=== PATIENT | male | born 1955 | race Caucasian/White ===

== ENCOUNTER 2025-06-06 20:21 | Day surgery (SDC) | payer MEDICARE, OTHER, SELFPAY ==
[2025-06-06 15:08] VITALS: BP 177/92
[2025-06-06 15:48] VITALS: BMI 33.2
[2025-06-06 15:51] VITALS: BP 138/68
--- NOTE | 2025-06-06 16:11 | ED.GENMED ---
History of Present Illness
General
Chief Complaint: Abdominal Pain
Source: patient
Exam Limitations: none
Time Seen by Provider: 06/06/25 15:59
Nursing documentation reviewed up to this point in time: agreed with
History of Present Illness
History of Present Illness:
The patient is a pleasant 70-year-old man who was encouraged to come here from urgent care after he complained of right lower abdominal pain since yesterday. Patient reports 1 episode of vomiting yesterday. He denies fevers and chills. Patient
reports that the pain is much worse when he applies area to his right lower abdomen. He denies diarrhea and constipation.
Past History
Past History
ED Past Medical History: HTN
ED Past Surgical History: Orthopedic
Social History
Tobacco: Non-smoker
Alcohol: Other
Drug: None
Personal: Other
Living: with family
Employment: Other
Family History
Family History: Other
Review of Systems
Review of Systems
Allergies reviewed?: Yes
All Other Systems: ROS reviewed and negative except as documented in HPI and ROS
Constitutional: Reports no symptoms
EENT: Reports no symptoms
Respiratory: Reports no symptoms
Cardiac: Reports no symptoms
ABD/GI: Reports abdominal pain, nausea and vomiting
: Reports no symptoms
Musculoskeletal: Reports no symptoms
Skin: Reports no symptoms
Neurological: Reports no symptoms
Endocrine: Reports no symptoms
Hematologic/Lymphatic: Reports no symptoms
Psychiatric: Reports no symptoms
Phy Exam
Physical Exam
Physical Exam:
Physical Exam
General: no apparent distress, not acutely ill
Neck: supple. no meningeal signs. normal psoterior pharynx
Heart: s1/s2 regular rate and rhythm, no murmur. equal radial pulses.
Lungs: no acute respiratory distress. clear bilaterally
Abdomen: Soft, nondistended, right lower quadrant tenderness
Neuro: alert and oriented. no focal neurological deficits
Skin: no rash
Psychiatric: well kept. interactive and cooperative
Extremities: no edema. no calf tenderness. negative homans. good distal pulses
Course
Orders/Labs/Results
Orders:
Orders
06/06/25 16:20
CT Abd/Pel (IV only)-DH only Urgent
Comment:
Reason For Exam: RLQ pain
06/06/25 16:31
Complete Blood Count/With Diff Urgent
Comprehensive Metabolic Panel Urgent
Lipase Urgent
06/06/25 16:51
Urinalysis Reflex To Culture Urgent
Date Specimen was Collected: 06/06/25
Time Specimen was Collected: 16:32
06/06/25 18:13
Piperacillin/Tazo 4.5 Gram [Zosyn] 4.5 gram in 100 ml IV NOW
06/06/25 18:14
0.9% Sodium Chloride 1000 ml [Nss] 1,000 ml IV BOLUS
Abnormal Lab Results
06/06/25
16:31
WBC 12.6 H 10^3/uL
(4.8-10.8)
Absolute Neuts (auto) 8.4 H 10^3/uL
(1.4-6.5)
Absolute Monos (auto) 1.3 H 10^3/uL
(0.1-0.6)
Monocytes % 10.2 H %
(1.7-9.3)
06/06/25 16:31
06/06/25 16:31
Vital Signs
Initial and Last Documented VS:
Initial Vital Signs
Temp Pulse Resp BP Pulse Ox
97.5 F 65 18 177/92 98
06/06/25 15:08 06/06/25 15:08 06/06/25 15:08 06/06/25 15:08 06/06/25 15:08
Last Documented Vital Signs
Temp Pulse Resp BP Pulse Ox
97.5 F 65 18 138/68 95
06/06/25 15:08 06/06/25 15:08 06/06/25 15:08 06/06/25 15:51 06/06/25 16:45
MDM/Problems Addressed
Differential Diagnosis Includes:
Acute appendicitis, acute diverticulitis, acute renal colic
MDM/Problems Addressed:
Patient has acute right lower abdominal pain
Chronic conditions affecting care: HTN
Acute Exacerbation and/or Progression of Chronic Illness:
Patient acutely hypertensive, likely due to anxiety and pain
Acute Exacerbation and/or Progression of Chronic Illness: HTN
*Radiology
Radiology exam reviewed: radiology read reviewed
*Pulse Oximetry
SaO2: 98
Oxygen Mode of Delivery: Room air
Patient hypoxic: no
*EKG
Interpreted by ED Provider?: NA
*Racing Car Driver Interpretation
Rate: Racing Car Driver- N/A
*Critical Care Note
Total Time (30-74mins, 75-104mins- exclusive of procedures): Not Applicable
Data Reviewed
Source: patient
Patient Management
Social determinants of health affecting care: Living situation and Strong social support
Discussion with other providers: Other (Leonardo)
ED Attending Note
-
Portions of this chart may have been created with voice recognition software.� Occasional wrong word or��sound alike� substitutions may have occurred due to the inherent limitations of voice recognition software.
Discharge Plan
Departure
Patient Disposition: Admit
Date of Disposition: 06/06/25
Time of Disposition: 18:14
Admit to: Med/Surg
Admit to doctor: Leonardo
Presentation/result/management discussed w/ accepting MD/DO: Leonardo
Patient with high blood pressure during this ER visit?: Yes
Condition: Good
Covid-19: Not Applicable
Discharge Problem:
Acute appendicitis
Prescriptions:
No Action
losartan 50 mg Tablet
75 mg PO HS
Theragen Tablet
1 tab PO HS
aspirin 81 mg Tablet,Delayed Release (Dr/Ec)
81 mg PO HS
omeprazole 10 mg Capsule,Delayed Release(Dr/Ec)
10 mg PO HS
ibuprofen 200 mg Tablet
600 mg PO DAILYPRN PRN (Reason: mild pain)
ezetimibe 10 mg Tablet
10 mg PO HS
tadalafil 5 mg Tablet
5 mg PO HS
tadalafil 10 mg Tablet
10 mg PO DAILY PRN (Reason: ED)
Referrals:
Ney Whitt MD [Family Provider, Internal Medicine]
Interventions
Interventions:
*General Assessment Last Done: 06/06/25 15:48
*Neglect/Abuse Screening Last Done: 06/06/25 15:48
*ED COVID-19 Vaccine History Last Done: 06/06/25 15:48
*ED Influenza Vaccine History Last Done: 06/06/25 15:48
[facility] Fall Risk Assessment Tool Last Done: 06/06/25 15:48
*Risk Screen - Suicide (C-SSRS) Last Done: 06/06/25 15:48
SY-Hauouo-Sntnarekkx Assessment Last Done: 06/06/25 15:48
Discharge Date and Time
Print Language: TAMAZIGHT
[2025-06-06 16:41] LABS: Hematocrit 43.8 % (39.0-52.0); Hemoglobin 15.1 g/dL (13.0-18.0); Mean Corp Hgb Conc. 34.5 g/dL (33.0-37.0); Mean Corpuscular Volume 89.2 fL (80.0-94.0); Nucleated Red Blood Cells % 0 % (-); Platelet Count 243 10^3/uL (130-400); Red Cell Dist. Width 12.5 % (11.5-14.5)
[2025-06-06 16:57] LABS: ALT (SGPT) 19 U/L (0-50); AST (SGOT) 19 U/L (17-59); Albumin 4.4 g/dl (3.5-5.0); Alkaline Phosphatase 66 U/L (38-126); Blood Urea Nitrogen 13 mg/dl (9-20); Calcium 9.2 mg/dl (8.4-10.2); Carbon Dioxide 30 mmol/L (22-30); Chloride 100 mmol/L (98-107); Estimated Creatinine Clearance 70 ml/min; Glucose 85 mg/dl (70-99); Lipase 64 U/L (23-300); Potassium 4.0 mmol/L (3.5-5.1); Sodium 135 mmol/L (135-145); Total Protein 7.2 g/dl (6.3-8.2); eGFR > 60.00
[2025-06-06 17:07] LABS: Urine Character Clear (Clear)
[2025-06-06] MEDS: NSS 1000 IV ×2 (18:33→22:00)
[2025-06-06] MEDS: ZOSYN 100 IV (18:34)
--- NOTE | 2025-06-06 20:25 | HPS.HSE ---
Family Physician
-
Family Physician: Ney Whitt
Chief Complaint
-
right sided abd pain
History of Present Illness
The patient is a pleasant 70-year-old man with hx of GERD, HTN, HLD who was encouraged to come here from urgent care after he complained of right lower abdominal pain since yesterday. Patient reports 1 episode of vomiting yesterday. He denies
fevers. Thinks he had chills. Patient reports that the pain is much worse when he applies pressure to his right lower abdomen. He denies diarrhea and constipation. No urinary complaints
CT ABD:IMPRESSION: Mild acute appendicitis. No perforation or abscess.
WBC 12.6
Medical History
Past Medical History
Past Medical History: Reports GERD, HTN and Hypercholesterolemia
Past Surgical History: Reports Orthopedic (right knee reconstruction 30 yrs ago)
Social History
Tobacco: Non-smoker
Alcohol: Occasional
Drug: None
Personal:
Living: With Family
Family History
Family History: Not pertinent
Allergies / Home Medications
Allergies reflects when Allergies were last updated in [facility].
Home Medications with original date entered in [facility]
Allergy/Medication List:
Allergies
Allergy/AdvReac Type Severity Reaction Status Date / Time
No Known Allergies Allergy Verified 06/06/25 15:11
Home Medications
aspirin 81 mg tablet,delayed release 81 mg PO HS 06/06/25
ezetimibe 10 mg tablet 10 mg PO HS 06/06/25
ibuprofen 200 mg tablet 600 mg PO DAILYPRN PRN mild pain 06/06/25
losartan 50 mg tablet 75 mg PO HS 06/06/25
omeprazole 10 mg capsule,delayed release 10 mg PO HS 06/06/25
tadalafil 10 mg tablet 10 mg PO DAILY PRN ED 06/06/25
tadalafil 5 mg tablet 5 mg PO HS 06/06/25
therapeutic multivitamin 1 tab PO HS 06/06/25
Review of Systems
-
History Source: Patient
A 12 point ROS was completed and negative except as noted: Yes
Constitutional: Reports Chills
EENT: Reports No Symptoms
Respiratory: Reports No Symptoms
Cardiac: Reports No Symptoms
Abdomen/GI: Reports Abdominal Pain (right mid to RLQ. Feeling bloated) and Vomiting (yesterday x1)
: Reports No Symptoms
Musculoskeletal: Reports No Symptoms
Skin: Reports No Symptoms
Neurological: Reports No Symptoms
Endocrine: Reports No Symptoms
Hematologic/Lymphatic: Reports No Symptoms
Psych: Reports No Symptoms
Physical Exam
Vital Signs
Vital Signs
Temp Pulse Resp BP Pulse Ox
97.5 F 65 18 138/68 95
06/06/25 15:08 06/06/25 15:08 06/06/25 15:08 06/06/25 15:51 06/06/25 16:45
Physical Exam
General: Well Developed, Well Nourished, No Apparent Distress, Comfortable and Pain
HEENT: NormoCephalic, Anicteric, Moist mucous membranes, Atraumatic and Good Dentition
Respiratory: Clear and Non Labored Respirations
Cardiac: S1/S2 and Regular Rhythm
Breast: Deferred by me
GI: Soft, Normal Bowel Sounds, Tender (+ tenderness to palpation RLQ) and Distended (mildly); No Non Tender or Non Distended
Rectal: Deferred by Provider
Genito-urinary: Deferred by me
Musculoskeletal: No Clubbing and No Cyanosis
Skin: Warm and Dry
Neuro: Awake, Alert, Oriented, AO x 3 and No Motor Deficits
Hematologic/Lymphatic: No Lymphadenopathy
Psych: Calm
Laboratory Results
-
06/06/25 16:31
06/06/25 16:31
Laboratory Results
Total Bilirubin 1.0 mg/dl (0.2-1.3) 06/06/25 16:31
AST 19 U/L (17-59) 06/06/25 16:31
ALT 19 U/L (0-50) 06/06/25 16:31
Alkaline Phosphatase 66 U/L (38-126) 06/06/25 16:31
Lipase 64 U/L (23-300) 06/06/25 16:31
Data Reviewed
-
CT Scan: Report Reviewed by me and Discussed with Physician
Lab Data: Discussed with Patient
Impression/Plan
-
IMPRESSION:
70 yo male with hx of HTN, HLD, GERD presents to ED with one dy hx of Right sided ABD pain Found to have acute appendicitis
PLAN:
Admit to service of Dr Patterson
Med surg obs
#acute appendicitis, uncomplicated
-NPO x meds after midnight
-IVF NSS @100
-Pain control: tylenol, toradol, dilaudid prn
-cont zosyn q 6 h
-Repeat cbc and bmp in am
#HTN
-cont losartan
#GERD
-cont omeprazole
#HLD
-cont ezetimibe
DVT prophylaxis: SCD for now
Full code
[2025-06-06 21:00] VITALS: BP 130/74
--- NOTE | 2025-06-06 21:45 | PTCARENOTE ---
The pt a 70 y/o M arrived on 2S from ED at 21:25 with dx of Acute Appendicitis with RLQ pain. PMH of GERD, HTN, HLD. Pt AOx3, denies need for pain medication at this time, bed in a low position, call light in reach, NPO at midnight for surgery
tomorrow, care ongoing.
[2025-06-06 22:00] VITALS: BMI 32.8
[2025-06-06] MEDS: PROTONIX 20 MG PO (22:34)
[2025-06-06] MEDS: ZETIA 10 MG PO (22:34)
[2025-06-06] MEDS: THERAGRAN 1 TABLET PO (22:34)
[2025-06-06] MEDS: COZAAR 75 MG PO (22:35)
[2025-06-06] MEDS: ZOSYN 50 IV (23:02)
[2025-06-06 23:35] VITALS: BP 138/77
[2025-06-07] VITALS (8 sets, daily range): BP systolic 129–169; BP diastolic 67–87; BMI 32.8
[2025-06-07] MEDS: ZOSYN 50 IV (05:03)
[2025-06-07 07:35] LABS: Hematocrit 41.1 % (39.0-52.0); Hemoglobin 14.0 g/dL (13.0-18.0); Mean Corp Hgb Conc. 34.1 g/dL (33.0-37.0); Mean Corpuscular Volume 89.5 fL (80.0-94.0); Nucleated Red Blood Cells % 0 % (-); Platelet Count 220 10^3/uL (130-400); Red Cell Dist. Width 12.3 % (11.5-14.5)
[2025-06-07 07:58] LABS: ALT (SGPT) 19 U/L (0-50); AST (SGOT) 21 U/L (17-59); Albumin 3.8 g/dl (3.5-5.0); Alkaline Phosphatase 73 U/L (38-126); Blood Urea Nitrogen 12 mg/dl (9-20); Calcium 8.7 mg/dl (8.4-10.2); Carbon Dioxide 27 mmol/L (22-30); Chloride 102 mmol/L (98-107); Estimated Creatinine Clearance 70 ml/min; Glucose 91 mg/dl (70-99); Potassium 4.0 mmol/L (3.5-5.1); Sodium 135 mmol/L (135-145); Total Protein 6.3 g/dl (6.3-8.2); eGFR > 60.00
[2025-06-07] MEDS: NSS 1000 IV (08:34)
--- NOTE | 2025-06-07 10:24 | CM ---
inventory manager reviewed patient's chart and met with patient and patient states he lives with his spouse in a 1 story home, patient is independent with adl's and ambulation. no dme, patient drives, home with spouse when stable, no needs.
PCP: Ney Whitt
[facility]: [facility]
Plan; Home with spouse when stable.
[2025-06-07] MEDS: ZOSYN IV (11:17)
--- NOTE | 2025-06-07 11:48 | OR.RPT ---
Operative Report
Operative Report
Primary Surgeon: Leonardo
Pre-op Diagnosis: Acute appendicitis
Post-op Diagnosis: Same
Procedure Performed: Laparoscopic appendectomy
Anesthesia Type: GETA
Specimen / Cultures: Appendix
Estimated Blood Loss: 5cc
Complications: None immediate
Operative Findings: Inflamed appendix, no pelvic fluid, appendix broke apart during dissection into two segments, both retrieved, small extrusion of brown stool from appendix, irrigated thoroughly
Date of Surgery: 06/07/25
Indications: This 70M developed right lower quadrant abdominal pain and on workup was found to have acute appendicitis. Laparoscopic appendectomy was elected.
Description of procedure: The patient was placed on the operating table in the supine position. General anesthesia was induced. A time-out was completed verifying correct patient, procedure, site, positioning, and special equipment prior to
beginning this procedure. An orogastric tube was placed. The abdomen was prepped and draped in the usual sterile fashion. A stab incision was made in left upper quadrant and the Veress needle was inserted. Proper position was confirmed by aspiration
and saline meniscus test. The abdomen was insufflated with carbon dioxide to a pressure of 12 mmHg. The patient tolerated insufflation well.
A 5mm optical trocar was then inserted at the left lower quadrant. The laparoscope was inserted and the abdomen inspected. No injuries from initial trocar placement or Veress needle insertion were noted. Additional trocars were then inserted in the
following locations: a 12-mm trocar at the umbilicus and a 5-mm trocar midline in the suprapubic space. The abdomen was inspected and no abnormalities were found. The table was placed in the Trendelenburg position with the right side up. The
appendix was turgid, inflamed and hyperemic without gangrenous changes or purulence. The tip of the appendix was gently grasped with an atraumatic grasper and retracted toward the patient�s feet and abdominal wall. This maneuver exposed the
appendiceal blood supply which was controlled with the Ligasure device. During this portion of the dissection the appendix into two segments and a small amount of brown stool extruded through the opening. This was irrigated and suctioned
clear. Following this, a laparoscopic linear cutting stapler with a 45mm sheridan load was deployed and used to transect the appendix at its base. The appendix was placed in an endoscopic retrieval bag, removed through the umbilical port, and passed off
the table as a specimen.
We then turned our attention to the staple line, which was noted to be hemostatic. The pelvis was inspected and no free fluid was identified. The umbilical trocar site was closed at the fascial level laparoscopically with 2-0 PDS under direct
vision. Secondary trocars were removed under direct vision and noted to be hemostatic. The laparoscope was withdrawn and the abdomen was allowed to collapse. The skin was closed with subcuticular sutures of 4-0 monocryl and topical skin adhesive.
The orogastric tube was removed.
The patient tolerated the procedure well and was taken to the postanesthesia care unit in stable condition.
--- NOTE | 2025-06-07 13:00 | PTCARENOTE ---
pt returned from PACU AOx3, denies pain. 4abd lap sites all well approximated, ice applied. pt asking to eat, obtaining diet order. CB in reach.
== END 2025-06-07 15:33 | disposition home or self-care (01) ==
LOC: SDS 20:21
PROVIDERS: Nurse Practitioner Family; ATTENDING PHYSICIAN Surgery; EMERGENCY PHYSICIAN Emergency Medicine; FAMILY PHYSICIAN Internal Medicine
DX: K35.80 Unspecified acute appendicitis (principal)
CPT/HCPCS: 44970; 74177; 80053; 81003; 83690; 85025; 88304; 96361; 96365; 99284; Q9967